=== PATIENT | female | born 1990 | race Two or more races ===

== ENCOUNTER 2019-02-16 20:52 | Emergency (ER) | payer MEDICAID ==
[~2019-02-16] VITALS: Ht 157.5 cm; Wt 71.7 kg
[2019-02-16 21:44] VITALS: BP 132/81
== END 2019-02-16 23:50 | disposition home or self-care (01) ==
LOC: ER 20:58
DX: S01.81XA Laceration without foreign body of other part of head, initial encounter (principal); W01.0XXA Fall on same level from slipping, tripping and stumbling without subsequent striking against object, initial encounter; Y93.89 Activity, other specified; Y92.002 Bathroom of unspecified non-institutional (private) residence as the place of occurrence of the external cause; Y99.8 Other external cause status
CPT/HCPCS: 12013; 99283; A6402